=== PATIENT | male | born 1980 | race Caucasian/White ===

== ENCOUNTER → 2023-10-20 13:54 | Outpatient (REF) | payer BC, SELFPAY | LOC: HWRAD 13:54 | PROVIDERS: ATTENDING PHYSICIAN Nurse Practitioner; FAMILY PHYSICIAN Nurse Practitioner Family | DX: R10.9 Unspecified abdominal pain (principal) | CPT/HCPCS: 76700 ==

== ENCOUNTER → 2023-11-03 06:21 | Day surgery (SDC) | payer BC, SELFPAY | LOC: GI 06:21 | PROVIDERS: ATTENDING PHYSICIAN Internal Medicine Gastroenterology | DX: Z12.11 Encounter for screening for malignant neoplasm of colon (principal); R10.10 Upper abdominal pain, unspecified; K22.89 Other specified disease of esophagus; K31.89 Other diseases of stomach and duodenum; Z83.719 Family history of colon polyps, unspecified | CPT/HCPCS: 45380; 43239; 88305; 88342 ==